=== PATIENT | male | born 1955 | race African-American/Black ===

== ENCOUNTER 2019-09-20 09:50 | Outpatient (CLI) | payer MEDICARE, OTHER ==
--- NOTE | 2019-09-20 11:20 | RAD ---
LUMBAR SPINE SERIES 3 VIEWS: Date: 09/20/2019 HISTORY: Left hip weakness and pain. FINDINGS: Vertebral bodies are normal in height. There is pronounced degenerative disc narrowing at L5-S1. Ther e is mild spondylolisthesis of L4 on L5 of approximately 9-10 mm. Pedicles appear intact. IMPRESSION: Moderate arthritic changes of the lower lumbar spine. POS: ANGEL LUIS
--- NOTE | 2019-09-20 11:21 | RAD ---
LEFT HIP 2 VIEWS: Date: 09/20/2019 HISTORY: Left hip pain and weakness. FINDINGS: There are moderate arthritic changes of the hip. There are osteophytic changes along the femoral head /neck junction, and fairly pronounced superior joint space narrowing. IMPRESSION: Moderately severe osteoarthritic changes of the hip. POS: ANGEL LUIS
== END 2019-09-20 09:51 | disposition home or self-care (01) ==
LOC: BURRAD 09:50
PROVIDERS: ATTEND Nurse Practitioner
DX: R29.898 Other symptoms and signs involving the musculoskeletal system (principal); M16.12 Unilateral primary osteoarthritis, left hip; M47.816 Spondylosis without myelopathy or radiculopathy, lumbar region
CPT/HCPCS: 72100